=== PATIENT | male | born 1980 | race African-American/Black ===

== ENCOUNTER 2019-07-24 10:12 | Emergency (ER) | payer SELFPAY ==
[~2019-07-24] VITALS: Ht 177.8 cm; Wt 78.0 kg
[2019-07-24 10:19] VITALS: BP 111/61
== END 2019-07-24 10:38 | disposition home or self-care (01) ==
LOC: ER 10:12
DX: F91.8 Other conduct disorders (principal); J45.909 Unspecified asthma, uncomplicated; F32.9 Major depressive disorder, single episode, unspecified
CPT/HCPCS: 99283